=== PATIENT | female | born 1980 | race American Indian/Alaskan Native ===

== ENCOUNTER 2019-01-08 07:49 | Emergency (ER) | payer BC, OTHER ==
--- NOTE | 2019-01-08 08:20 | EDM.PDOC ---
ED HPI GENERAL MEDICAL PROBLEM - General Chief Complaint: Fever Stated Complaint: STREP OR FLU [id number] Time Seen by Provider: 01/08/19 08:03 Source of Information: Reports: Patient History Limitations: Reports: No Limitations - History of Present Illness INITIAL COMMENTS - FREE TEXT/NARRATIVE: Pt to the ER with c/o sore throat, fever, cough. She states she began not feeling well . Was seen at [facility] and tested for influenza. This was negative but she was started on Tamiflu as two of her daughters were positive for influenza. Patient admits to N/V/D as well. C/o of the sore throat getting worse. States she generally has trouble with tonsillitis. Onset: Gradual Duration: Constant, Getting Worse - Related Data Allergies Allergy/AdvReac Type Severity Reaction Status Date / Time clindamycin Allergy Diarrhea Verified 01/08/19 08:07 Home Meds: Home Meds Amoxicillin [Amoxil] 500 mg PO TID 08/30/14 [History] Ferrous Sulfate [Iron] 160 mg PO DAILY 08/30/14 [History] Multivitamin [Multivitamins] 1 each PO DAILY 08/30/14 [History] Past Medical History - Past Health History Medical/Surgical History: Denies Medical/Surgical History Gastrointestinal History: Reports: Other (See Below) Other Gastrointestinal History: gallbladder removal 2014. 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 ED EXAM, ENT - Physical Exam Exam: See Below Exam Limited By: No Limitations General Appearance: Alert, WD/WN, No Apparent Distress Eye Exam: Bilateral Eye: EOMI, Normal Inspection Ears: Normal External Exam, Hearing Grossly Normal Nose: Normal Inspection Mouth/Throat: Pharyngeal Erythema, Tonsillar Erythema, Tonsillar Swelling Head: Atraumatic, Normocephalic Neck: Supple, Full Range of Motion, Lymphadenopathy (L), Lymphadenopathy (R), Tender Lateral Respiratory/Chest: No Respiratory Distress, Lungs Clear, Normal Breath Sounds, No Accessory Muscle Use, Chest Non-Tender Cardiovascular: Normal Peripheral Pulses, Regular Rate, Rhythm, No Edema, No Gallop, No JVD, No Murmur, No Rub GI/Abdominal: Normal Bowel Sounds, Soft, Non-Tender (Female) Exam: Deferred Rectal (Female) Exam: Deferred Back: Normal Inspection, Full Range of Motion Extremities: Normal Inspection, Normal Range of Motion, Non-Tender, No Pedal Edema, Normal Capillary Refill Neurological: Alert, Oriented, CN II-XII Intact, Normal Cognition, Normal Gait, Normal Reflexes, No Motor/Sensory Deficits Psychiatric: Normal Affect, Normal Mood Skin: Warm, Dry, Intact, Normal Color, No Rash Lymphatic: Adenopathy (anterior cervical +2) Course - Vital Signs Last Recorded V/S: Last Vital Signs Temp 97.5 F 01/08/19 08:04 Pulse 86 01/08/19 08:04 Resp 14 01/08/19 08:04 BP 111/74 01/08/19 08:04 Pulse Ox 97 01/08/19 08:04 - Orders/Labs/Meds Orders: Active Orders 24 hr Category Date Time Status CULTURE STREP A CONFIRMATION [RM] Stat Lab 01/08/19 07:54 Results STREP SCRN A RAPID W CULT CONF [] Stat Lab 01/08/19 07:54 Results Labs: Rapid Strep: Negative Departure - Departure Time of Disposition: 08:30 Disposition: Home, Self-Care 01 Condition: Fair Clinical Impression: Tonsillitis - Discharge Information *PRESCRIPTION DRUG MONITORING PROGRAM REVIEWED*: No *COPY OF PRESCRIPTION DRUG MONITORING REPORT IN PATIENT GIANA: No Instructions: Tonsillitis, [id number] Referrals: Pierre Ladd MD [Primary Care Provider] - Forms: ED Department Discharge Additional Instructions: RX: Amoxicillin Drink plenty of water May use Tylenol and/or Ibuprofen as directed for fever, pain Continue with Tamiflu until gone Follow up with your primary care facility - My Orders Last 24 Hours: My Active Orders 01/08/19 07:54 CULTURE STREP A CONFIRMATION [RM] Stat STREP SCRN A RAPID W CULT CONF [RM] Stat - Assessment/Plan Last 24 Hours: My Active Orders 01/08/19 07:54 CULTURE STREP A CONFIRMATION [RM] Stat STREP SCRN A RAPID W CULT CONF [RM] Stat
== END 2019-01-08 08:38 | disposition home or self-care (01) ==
LOC: DL.ED 07:49
DX: J03.90 Acute tonsillitis, unspecified (principal); Z88.1 Allergy status to other antibiotic agents; Z79.899 Other long term (current) drug therapy
CPT/HCPCS: 87081; 87430; 99283

== ENCOUNTER 2020-05-06 22:22 | Emergency (ER) | payer BC, MEDICAID ==
--- NOTE | 2020-05-06 22:57 | CR ---
PROCEDURE INFORMATION: Exam: XR Right Ankle Exam date and time: 05/06/2020 10:41 PM Age: 39 years old Clinical indication: Other: Pain; Additional info: Pain twisted TECHNIQUE: Imaging protocol: XR Right ankle. Views: 3 or more views. COMPARISON: No relevant prior studies available. FINDINGS: Bones/joints: The bones appear intact. No acute fracture is identified. The ankle mortise is congruent. No ankle joint effusion is identified. There is a small plantar calcaneal spur. Soft tissues: The soft tissues are within normal limits. IMPRESSION: No acute osseous injury identified.
--- NOTE | 2020-05-06 23:03 | EDM.PDOC ---
ED HPI GENERAL MEDICAL PROBLEM - General Chief Complaint: Lower Extremity Injury/Pain Stated Complaint: RIGHT ANKLE TWISTED PER PT Time Seen by Provider: 05/06/20 22:35 Source of Information: Reports: Patient, RN History Limitations: Reports: No Limitations - History of Present Illness INITIAL COMMENTS - FREE TEXT/NARRATIVE: ED with c/o right ankle pain, states walking out of house and tripped on boot twisting right ankle felt something snap on outer part of ankle, scratch to outer ankle Partial weight bearing with pain, No other injury. Right Ankle Pain Score (Numeric/FACES): 7 - Related Data Allergies Allergy/AdvReac Type Severity Reaction Status Date / Time clindamycin Allergy Diarrhea Verified 05/06/20 22:34 Home Meds: Home Meds . 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 Psychiatric History: Reports: None Hematologic History: Reports: Anemia, Iron Deficiency - Past Surgical History GI Surgical History: Reports: Cholecystectomy Female Surgical History: Reports: Hysterectomy Dermatological Surgical History: Reports: Skin Biopsy Social & Family History - Family History Family Medical History: Noncontributory - Tobacco Use Smoking Status *Q: Current Every Day Smoker Years of Tobacco use: 10 Packs/Tins Daily: 0.3 - Caffeine Use Caffeine Use: Reports: Coffee, Soda - Recreational Drug Use Recreational Drug Use: No Review of Systems - Review of Systems Review Of Systems: Comprehensive ROS is negative, except as noted in HPI. ED EXAM, GENERAL - Physical Exam Exam: See Below Exam Limited By: No Limitations General Appearance: Alert, Mild Distress Eye Exam: Bilateral Eye: EOMI Ears: Normal External Exam Nose: Normal Inspection Throat/Mouth: Normal Inspection, Normal Lips, Normal Oropharynx, Normal Voice Head: Atraumatic, Normocephalic Neck: Normal Inspection Respiratory/Chest: No Respiratory Distress, Normal Breath Sounds Cardiovascular: Normal Peripheral Pulses, Regular Rate, Rhythm Extremities: Joint Swelling (mild right ankle medial and lateral, no deformity), Limited Range of Motion. No: Leg Pain Neurological: Alert, Oriented, Normal Cognition Psychiatric: Normal Affect Skin Exam: Warm, Wound/Incision (outer right ankle amall 5mm abarasion, bleeding controlled., bandaide in palce). No: Ecchymosis Course - Vital Signs Last Recorded V/S: Last Vital Signs Temp 99.5 F 05/06/20 22:34 Pulse 93 05/06/20 22:34 Resp 16 05/06/20 22:34 BP 115/73 05/06/20 22:34 Pulse Ox 99 05/06/20 22:34 Departure - Departure Time of Disposition: 23:00 Disposition: Home, Self-Care 01 Condition: Good Clinical Impression: Sprain of right ankle Qualifiers: Encounter type: initial encounter Involved ligament of ankle: unspecified ligament Qualified Code(s): S93.401A - Sprain of unspecified ligament of right ankle, initial encounter - Discharge Information *PRESCRIPTION DRUG MONITORING PROGRAM REVIEWED*: No *COPY OF PRESCRIPTION DRUG MONITORING REPORT IN PATIENT GIANA: No Instructions: Crutch Use, Adult, [id number], Ankle Sprain, [id number] Forms: ED Department Discharge Additional Instructions: ice rest elevate geetha wrap crutches weight bearing as tolerated clinic follow up recheck one week if not improving alternate tylenol and ibuprofen every 4 hours as needed for discomfort Sepsis Event Note (ED) - Evaluation Sepsis Screening Result: No Definite Risk - Focused Exam Vital Signs: Vital Signs Temp Pulse Resp BP Pulse Ox 05/06/20 22:34 99.5 F 93 16 115/73 99
== END 2020-05-06 23:08 | disposition home or self-care (01) ==
LOC: DL.ED 22:22
DX: S93.401A Sprain of unspecified ligament of right ankle, initial encounter (principal); Z88.1 Allergy status to other antibiotic agents; F17.210 Nicotine dependence, cigarettes, uncomplicated; X50.1XXA Overexertion from prolonged static or awkward postures, initial encounter
CPT/HCPCS: 73610-RT; 99283